=== PATIENT | female | born 1945 | race Caucasian/White ===

== ENCOUNTER 2017-07-25 05:27 | Day surgery (SDC) | payer OTHER ==
[~2017-07-25 05:27] MED LIST: ADVAIR HFA 230/12 GM IH; BENZONATATE200 M1 PO; FAMOTIDINE20 MG PO; HUMALOG100 UNIT/1; HYDROCHLOROTHIA25 MG PO; IRBESARTAN150 MG PO; LANTUS SOL100 UNIT/1; LINZESS145 MCG PO; SINGULAIR 10MG10 MG PO; SYNTHROID75 MCG PO; TOPROL XL50 M1 PO; VENLAFAXINE HC150 MG PO; ZOCOR40 MG PO
[2017-07-25] MEDS ORDERED: MACROBID 100 M100 MG PO (11:36)
[2017-07-25] MEDS ORDERED: ULTRACET PO (11:37)
== END 2017-07-25 13:50 | disposition home or self-care (01) ==
LOC: CIR.AMB 05:27
DX: N81.11 Cystocele, midline (principal); N81.5 Vaginal enterocele; N81.6 Rectocele